=== PATIENT | female | born 1985 | race Asian ===

== ENCOUNTER 2016-10-15 14:52 | Emergency (ER) | payer MEDICAID ==
[~2016-10-15] VITALS: Ht 154.9 cm; Wt 50.8 kg
[2016-10-15 15:40] LABS: APPEARANCE,URINE CLEAR; KETONES,URINE NEGATIVE (NEGATIVE); LEUKOCYTE ESTERASE ,URINE NEGATIVE (NEGATIVE); NITRITE,URINE NEGATIVE (NEGATIVE); PH,URINE 5 (4.5-8.0); PROTEIN,URINE NEGATIVE (NEGATIVE); UROBILINOGEN,URINE NORMAL MG/DL (0.0-1.0)
[2016-10-15 16:00] LABS: AMORPHOUS SEDIMENT,UR FEW /LPF; BACTERIA,URINE FEW /HPF; SQUAMOUS EPITHELIAL CELL,UR FEW /LPF (NONE/OCC); WBC,URINE 0-2 /HPF (0 - 2)
--- NOTE | 2016-10-15 16:35 | Emergency Room Report ---
History of Present Illness General Chief Complaint: Female Urogenital Problems Source: Patient Present Illness HPI 31-year-old female presents to emergency Department complaining of frequency with urination, and pt reports a history of G & C and PID. She states that she was treated approximately one month ago for UTI and has recently had 2 new partners with unprotected intercourse and is worried that she may have contracted STI again. Patient denies frequency, urgency, hematuria, pelvic pain , dyspareunia the patient states she is currently on her period. Patient denies itching, external vaginal lesions or tender palpable lymph nodes. Patient denies nausea vomiting fevers chills or . Denies CP, Palpitations, LOC, AMS, dizziness, Changes in Vision, Sensation, paresthesias, or a sudden severe headache. Allergies: Coded Allergies: CODEINE (Unverified Allergy, Unknown, 10/15/16) Uncoded Allergies: CODEINE (Allergy, Unknown, 10/15/16) Patient History Past Medical History: see triage record Past Surgical History: none Pertinent Family History: none Last Menstrual Period: 10/12/16 Now: No Immunizations: UTD Reviewed Nursing Documentation: PMH: Agreed, PSxH: Agreed Nursing Documentation-PMH Past Medical History: No Stated History Review of Systems All Other Systems: negative except mentioned in HPI Physical Exam Vital Signs Date Time Temp Pulse Resp B/P Pulse Ox O2 Delivery O2 Flow Rate FiO2 10/15/16 15:05 98.1 83 16 124/86 99 Room Air Sp02 EP Interpretation: reviewed, normal General Appearance: no apparent distress, alert, GCS 15, non-toxic Head: normocephalic, atraumatic Eyes: bilateral eye PERRL, bilateral eye normal inspection ENT: hearing grossly normal, normal pharynx, no angioedema, normal voice Neck: full range of motion, supple/symm/no masses Respiratory: chest non-tender, lungs clear, normal breath sounds, speaking full sentences Cardiovascular #1: regular rate, rhythm, no edema Gastrointestinal: normal bowel sounds, non tender, soft, no guarding, no rebound Rectal: deferred Genitourinary: normal inspection, no CVA tenderness, adnexa normal, ext genitalia/vag normal - no lesions noted., other - Pt currently on menstral cycle and declines pelvic exam Musculoskeletal: back normal, gait/station normal, normal range of motion, non- tender Neurologic: alert, oriented x3, responsive, motor strength/tone normal, sensory intact, speech normal Psychiatric: judgement/insight normal, memory normal, mood/affect normal, no suicidal/homicidal ideation Reflexes: 4+ bicep (R), 4+ bicep (L), 4+ tricep (R), 4+ tricep (L), 4+ knee (R) , 4+ knee (L) Skin: normal color, no rash, warm/dry, well hydrated Lymphatic: no adenopathy Medical Decision Making PA Attestation Dr. Morel is my supervising Physician whom patient management has been discussed with. Diagnostic Impression: Primary Impression: Vaginal discharge Additional Impressions: History of UTI History of PID ER Course 31-year-old female presents to emergency Department complaining of frequency with urination, and pt reports a history of G & C and PID. She states that she was treated approximately one month ago for UTI and has recently had 2 new partners with unprotected intercourse and is worried that she may have contracted STI again. Patient denies frequency, urgency, hematuria, pelvic pain , dyspareunia the patient states she is currently on her period. Patient denies itching, external vaginal lesions or tender palpable lymph nodes. Patient denies nausea vomiting fevers chills or . -Pt. states she does not know the HIV status of new partners, and is worried about Ddx considered but are not limited to UTi , STI, G & C, trichomonas, Vaginitis , cervicitis, Bartholins gland cyst or cellulitis. Vital signs: are WNL, pt. is afebrile H&PE are most consistent with exposure to venereal disease, hx of venereal disease, ORDERS: - UA: unremarkable no evidence of acute urinary tract infection. -Urine G &C - Negative -Rapid HIV: Negative ED INTERVENTIONS: -250mg Rocephin IM - She was given a list of free STD clinic's discussed with this patient proper followup and resources for future STD exams. DISCHARGE: At this time pt. is stable for d/c to home. Will provide printed patient care instructions, and any necessary prescriptions. Care plan and follow up instructions have been discussed with the patient prior to discharge. Labs Test 10/15/16 15:09 10/15/16 16:00 Urine Color Pale yellow Urine Appearance Clear Urine pH 5 (4.5-8.0) Urine Specific [place] 1.015 (1.005-1.035) Urine Protein Negative (NEGATIVE) Urine Glucose (UA) Negative (NEGATIVE) Urine Ketones Negative (NEGATIVE) Urine Occult Blood 3+ (NEGATIVE) Urine Nitrite Negative (NEGATIVE) Urine Bilirubin Negative (NEGATIVE) Urine Urobilinogen Normal MG/DL (0.0-1.0) Urine Leukocyte Esterase Negative (NEGATIVE) Urine RBC 2-4 /HPF (0 - 2) Urine WBC 0-2 /HPF (0 - 2) Urine Squamous Epithelial Cells Few /LPF (NONE/OCC) Urine Amorphous Sediment Few /LPF (NONE) Urine Bacteria Few /HPF (NONE) HIV (1&2) Antibody Rapid Negative (NEGATIVE) Last Vital Signs Date Time Temp Pulse Resp B/P Pulse Ox O2 Delivery O2 Flow Rate FiO2 10/15/16 15:05 98.1 83 16 124/86 99 Room Air Disposition: HOME, SELF-CARE Condition: Stable Scripts Doxycycline Hyclate* (VIBRAMYCIN*) 100 Mg Capsule 100 MG ORAL EVERY 12 HOURS for 7 Days, #14 CAP 0 Refills Prov: Leana Chaudhry 10/15/16 Referrals: NOT CHOSEN IPA/MD,REFERRING (PCP) Patient Instructions: Chlamydia Test, Gonorrhea Testing, Pelvic Inflammatory Disease, [id number] Additional Instructions: Take medications as directed. Follow up with PCP in 3-5 days Return sooner to ED if new symptoms occur, or current symptoms become worse. - Please note that this Emergency Department Report was dictated using [employer] technology software, occasionally this can lead to erroneous entry secondary to interpretation by the dictation equipment. Leana Chaudhry Oct 15, 2016 16:35
[2016-10-15] MEDS ORDERED: VIBRAMYCIN100 MG ORAL (16:38)
[2016-10-15] MEDS ORDERED: Lidocaine 1% MPF 10mg/ml 5ml ONE (16:48)
[2016-10-15 16:55] VITALS: BP 113/79
== END 2016-10-15 17:05 | disposition home or self-care (01) ==
LOC: EMR 16:00
DX: N89.8 Other specified noninflammatory disorders of vagina (principal); Z88.6 Allergy status to analgesic agent
CPT/HCPCS: 81003; 86703; 87491; 87590; 96372; 99283; J0696